=== PATIENT | male | born 2005 | race Caucasian/White ===

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

== ENCOUNTER 2025-01-06 11:54 | Emergency (ER) | payer OTHER, SELFPAY ==
[2025-01-06 12:33] VITALS: BP 134/74; PULSE 57; RESP 16; TEMP 36.3; O2SAT 98; BMI 37.1
--- NOTE | 2025-01-06 12:47 | ED_ITS ---
HPI - General Adult General Chief complaint: Extremity Injury, Lower Stated complaint: popped L knee Time Seen by Provider: 01/06/25 12:37 Source: patient Mode of arrival: ambulatory Limitations: no limitations History of Present Illness ED Provider: Jono Martinez HPI narrative: 19 yold male with pmh of left ACL tear presents to the ED for left knee pain. Patient states last his knee gave out while walking down the stairs. Patient states knee dislocated and went back into place. Patient states he had ACL tear repairs surgery that was unsucessful. Patient had normal xray at urgent care adn sent for MRI. Related Data Previous Rx's ?Medication ?Instructions ?Recorded acetaminophen 500 mg tablet 500 mg PO QID PRN fever or pain 10/16/23 #20 tabs azithromycin 250 mg tablet 250 mg PO DAILY 4 days #4 t abs 10/16/23 cefuroxime axetil 500 mg tablet 500 mg PO BID #14 tabs 10/16/23 ibuprofen 600 mg tablet 600 mg PO QID PRN fever or p ain 10/16/23 #20 tabs naproxen 500 mg tablet 500 mg PO BID PRN pain #14 t abs 01/06/25 Allergies Allergy/AdvReac Type Severity Reaction Status Date / Time No Known Allergies Allergy Verified 01/06/25 12:36 Review of Systems 2 Review of Systems: Knee popped out of placed and self reduced. Yes all other systems are reviewed and are negative [facility] Social History Social History Alcohol intake: never Patient Tobacco Use Status: Never used Tobacco Physical Exam ED Vital Signs: Vital Signs - 24 hr 01/06/25 12:33 Temperature 97.3 F Pulse Rate 57 Respiratory Rate 16 Blood Pressure 134/74 Pulse Oximetry 98 Oxygen Delivery Method Room Air BMI result Body Mass Index 37.1 Const General: cooperative, healthy appearing, comfortable, no acute distress, well developed, alert, awake and Physically active Orientation/consciousness: patient oriented x3 HENMT Head: Yes normal to inspection, Yes No palpable skull fracture present, Yes normocephalic and Yes atraumatic Ears: hearing grossly normal bilaterally, external ears normal, TM's normal bilaterally, TM normal on the right, TM normal on the left, EAC's normal, mastoids normal and no periauricular adenopathy Eyes General: appearance normal, both eyes and all related structures Neck Neck: Yes normal visual inspection, Yes full ROM, Yes no lymphadenopathy, Yes no meningeal signs, Yes trachea midline, Yes supple, No anterior neck swelling and No tender Chest Chest palpation & inspection: normal inspection of the chest and normal palpation of entire chest wall Resp Effort & Inspection: normal respiratory effort and able to speak in complete sentences Auscultation: clear to auscultation bilaterally Cardio Jugular venous distension: no JVD Heart sounds: S1 normal heart sound present and S2 normal heart sound present GI Inspection: Yes normal to inspection Palpation (GI): Soft to palpation, nontender, no guarding and not rigid General: Yes no CVA tenderness Back/Spine/Pelvis Back: no CVA tenderness and No back tenderness Skin General skin exam: no rashes or lesions noted, elasticity normal and turgor normal Neuro General: patient oriented x3, gait normal, tone normal, moves all extremities, Normal light touch and pain sensation, no meningeal signs, no focal motor deficits and CN's II-XI intact bilaterally Extrem General: Yes normal to inspection, Yes full ROM and Yes capillary refill normal Knee images: 2 1. presents to the ED for redness, red streaks, ecchymosis, deromities, or stifness. rest of extremities are noraml. motor, neuro, and vasular exam is intact. Psych Appearance: grossly normal, well kempt and not disheveled Medical Decision Making Medical Decision Making MDM Narrative: 19-year-old with past medical history of left knee ACL tear presents to ED for MRI of left knee. Patient states last while walking down the stairs his left knee came out pop to the right and then popped back in. Patient was seen at urgent care 2 days ago and was informed you will need a repeat MRI. Patient denies any incident of knee dislocation or any other trauma since . Patient denies any calf pain chest pain or shortness of breath. Patient denies any redness fever or chills. Patient able to bear weight and has knee wrap ordered. Patient has had normal x-ray at urgent care 2 days ago. No need for repeat imaging. Patient informed to follow up with the orthopedic Surgeon. Not suspecting DVT, septic joint, cellulitis, gout, compartment syndrome, arterial occlusion, any other life-threatening etiology. Differential Diagnosis Differential Diagnoses: The differential diagnosis associated with the presentation includes (Arthritis, dislocation) Admission/Observation Consideration of admission/observation: Escalation of care including admission/observation considered Independent Historian Clinical information obtained from an independent historian. History obtained from or confirmed by: Other (Patient is) Prescription Management I considered prescription management with: Pain Medication Discharge Plan Discharge Clinical Impression: Knee pain Patient Disposition: Home, Self-Care Instructions: Knee Pain (ED) Additional Instructions: Recommend follow-up with primary care provider and orthopedic surgeon. You will need an MRI to evaluate possible new ACL tear or any other ligament meniscus injury. Return to the ED immediately for any swelling, redness, bluish black discoloration, red streaks, inability to walk, fever, chills, chest pain, shortness of breath, calf pain or any other concerning symptoms. Continue using your knee Arsenio wrap. Do not take any other NSAID meds while taking naproxen. Prescriptions: New naproxen 500 mg tablet 500 mg PO BID PRN (Reason: pain) Qty: 14 0RF No Action cefuroxime axetil 500 mg tablet 500 mg PO BID Qty: 14 0RF azithromycin 250 mg tablet 250 mg PO DAILY 4 Days Qty: 4 0RF Rx Instructions: start on day 2 of therapy ibuprofen 600 mg tablet 600 mg PO QID PRN (Reason: fever or pain) Qty: 20 0RF acetaminophen 500 mg tablet 500 mg PO QID PRN (Reason: fever or pain) Qty: 20 0RF Referrals: [facility] [place] [facility] [Provider Group, Orthopedics] - 2 days Referral Note: Need cap dislocation that is self reduced. History of left ACL tear. Need MRI. Normal x-ray at urgent care Clinical Impression: Knee pain Stand Alone Forms: Work/School Release Interventions: ED Discharge Assessment Last Done: 01/06/25 13:43 Discharge Date/Time: 01/06/25 13:43 Print Language: Bengali
[2025-01-06 13:43] VITALS: BP 134/74; PULSE 57; RESP 16; TEMP 36.3; O2SAT 98
--- OUTSIDE RECORDS SUMMARY | 2025-01-06 15:38 | XMS_ITS | Encounter Summary ---
Author Organization [facility] Address [address] [place] [address] Phone Care Team Providers Care Import/Export Analyst Name Role Phone Harriet Kamara MD Primary Care Provider Unavailabl e Encounter Details Date Type Department Care Team (Late st Contact Info) Description 06/27/2012 Documentation [facility] [place] Family Medicine [address] [place] [address] Family Medicine, Physician [address] [place] [address] Social History Tobacco Use Types Packs/Day Years Used Date Smoking Tobacco: Never Assessed Sex and Gender Information Value Date Recorded Sex Assigned at Not on file Legal Sex Male 4:51 PM EDT Gender Identity Not on file Sexual Orientation Not on file documented as of this encounter Plan of Treatment Not on file documented as of this encounter Visit Diagnoses Not on filedocumented in this encounter Care Teams Import/Export Analyst Relationship Specialty Start Date End Date Harriet Kamara MD PCP - General 11/11/16 02/06/24 documented as of this encounter
--- OUTSIDE RECORDS SUMMARY | 2025-01-06 15:38 | XMS_ITS | Clinical Summary ---
Author Organization [facility] Address [address] [place] [id number] Phone Care Team Providers Care Deboner Name Role Phone Unavailable Primary Care Provider Unavailabl e Immunizations Immunization Administration Dates Next Due DTaP / Hep B / IPV 03/31/2005,01/28/2005, 005 DTaP 5 12/15/2008,03/30/2006 Hep A, ped/adol 10/01/2007,03/30/2006 Hep B, ped/adol 2004 Hib (HbOC) 03/31/2005,2004 Hib (PRP-T) 01/12/2006,01/28/2005 IPV 12/15/2008 Influenza Split 03/09/2012,01/19/2011,12/21/2009 Influenza, injectable, trivalent 12/15/2008,03/04,01/12/2006,03/31/2005 MMR 12/15/2008,09/30/2005 Pneumococcal Conjugate 01/12/2006,03/31/2005,,2004 Varicella 12/15/2008,09/30/2005 Family History Relation Name Status Comments Maternal Grandmother Alive Materna l grandmother: Obstructive sleep apnea Other Family history of Seizure disorder, Family history of Asthma, Family history of Diabetes mellitus, Family history of Obesity Paternal Grandmother Paterna l aunt: Cancer, breast Social History Tobacco Use Types Packs/Day Years Used Date Smoking Tobacco: Never Assessed Sex and Gender Information Value Date Recorded Sex Assigned at Not on file Legal Sex Male 4:51 PM EDT Gender Identity Not on file Sexual Orientation Not on file Last Filed Vital Signs Vital Sign Reading Time Taken Comments Blood Pressure 94/50 10/08/2012 12:00 AM EDT Pulse 110 02/07/2012 12:00 AM EST Temperature 39.1 C (102.4 F) 10/08/2012 12:00 AM EDT Respiratory Rate - - Oxygen Saturation 97% 02/07/2012 12:00 AM EST Inhaled Oxygen Concentration - - Weight 44.7 kg (98 lb 8 oz) 10/17/2012 12:00 AM EDT Height 137.2 cm (4' 6 ) 10/17/2012 12:00 AM EDT Body Mass Index 23.75 10/17/2012 12:00 AM EDT Plan of Treatment Health Maintenance Due Date Last Done Comments DTaP,Tdap,and Td Vaccines (6 - Tdap) 09/27/2015 12/15/2008, 03/30/2006, 03/31/2005, Additional history exists HPV Vaccines (1 - Male 3-dose series) 09/27/2019 Men B Vaccine (1 of 2 - Standard) 2020 Influenza Vaccines (#1) 2024 03/09/20 12, 01/19/2011, 12/21/2009, Additional history exists COVID-19 Vaccine (1 - season) 2024 Hepatitis B Vaccines Completed 03/31/2005, 01/28/2005, 2004, Additional history exists HIB Vaccines Completed 01/12/2006, 03/04, 01/28/2005, Additional history exists Pneumococcal Vaccine Completed 01/12/2006, 03/31/2005, 01/28/2005, Additional history exists Hepatitis A Vaccines Completed 10/01/2007, 03/30/20 06 IPV Vaccines Completed 12/15/2008, 03/04, 01/28/2005, Additional history exists MMR Vaccines Completed 12/15/2008, 09/30/2005 Varicella Vaccines Completed 12/15/2008, 09/30/2005 Meningococcal Vaccine Aged Out No lucy shelby eligible based on patient's age to complete this topic
--- OUTSIDE RECORDS SUMMARY | 2025-01-06 15:38 | XMS_ITS | Encounter Summary ---
Author Organization [facility] Address [address] [place] [address] Phone Care Team Providers Care Worship Pastor Name Role Phone Harriet Kamara MD Primary Care Provider Unavailabl e Encounter Details Date Type Department Care Team (Late st Contact Info) Description 07/25/2011 Documentation [facility] [place] Family Medicine [address] [place] [address] Family Medicine, Physician [address] [place] [address] Social History Tobacco Use Types Packs/Day Years [...] on filedocumented in this encounter Care Teams Worship Pastor Relationship Specialty Start Date End Date Harriet Kamara MD PCP - General 11/11/16 02/06/24 documented as of this encounter
--- OUTSIDE RECORDS SUMMARY | 2025-01-06 15:38 | XMS_ITS | Encounter Summary ---
Author Organization [facility] Address [address] [place] [address] Phone Care Team Providers Care Tank Cleaning Supervisor Name Role Phone Harriet Kamara MD Primary Care Provider Unavailabl e Encounter Details Date Type Department Care Team (Late st Contact Info) Description 05/31/2013 Documentation [facility] [place] Family Medicine [address] [place] [address] Family Medicine, Physician [address] [place] [address] Social History Tobacco Use Types Packs/Day Years [...] on filedocumented in this encounter Care Teams Tank Cleaning Supervisor Relationship Specialty Start Date End Date Harriet Kamara MD PCP - General 11/11/16 02/06/24 documented as of this encounter
--- OUTSIDE RECORDS SUMMARY | 2025-01-06 15:38 | XMS_ITS | Encounter Summary ---
Author Organization [facility] Address [address] [place] [address] Phone Care Team Providers Care Computer Repair Instructor Name Role Phone Harriet Kamara MD Primary Care Provider Unavailabl e Encounter Details Date Type Department Care Team (Late st Contact Info) Description 11/17/2016 Conversion Encounter [address] [address] Social History Tobacco Use Types Packs/Day Years [...] on filedocumented in this encounter Care Teams Computer Repair Instructor Relationship Specialty Start Date End Date Harriet Kamara MD PCP - General 11/11/16 02/06/24 documented as of this encounter
--- OUTSIDE RECORDS SUMMARY | 2025-01-06 15:38 | XMS_ITS | Encounter Summary ---
Author Organization [facility] Address [address] [place] [address] Phone Care Team Providers Care Division Order Technician Name Role Phone Harriet Kamara MD Primary Care Provider Unavailabl e Encounter Details Date Type Department Care Team (Late st Contact Info) Description 01/20/[address] [facility] [place] Family Medicine [address] [place] [address] Family Medicine, Physician [address] [place] [address] Social History Tobacco Use Types Packs/Day Years [...] on filedocumented in this encounter Care Teams Division Order Technician Relationship Specialty Start Date End Date Harriet Kamara MD PCP - General 11/11/16 02/06/24 documented as of this encounter
--- OUTSIDE RECORDS SUMMARY | 2025-01-06 15:38 | XMS_ITS | Encounter Summary ---
Author Organization [facility] Address [address] [place] [address] Phone Care Team Providers Care Health Services Manager Name Role Phone Harriet Kamara MD Primary Care Provider Unavailabl e Encounter Details Date Type Department Care Team (Late st Contact Info) Description 01/20/2011 Documentation [facility] [place] Family Medicine [address] [place] [address] Family Medicine, Physician [address] [place] [address] Social History Tobacco Use Types Packs/Day Years [...] on filedocumented in this encounter Care Teams Health Services Manager Relationship Specialty Start Date End Date Harriet Kamara MD PCP - General 11/11/16 02/06/24 documented as of this encounter
--- OUTSIDE RECORDS SUMMARY | 2025-01-06 15:39 | XMS_ITS | Encounter Summary ---
Author Organization [facility] Address [address] [place] [address] Phone Care Team Providers Care Plaster Machine Tender Name Role Phone Harriet Kamara MD Primary Care Provider Unavailabl e Encounter Details Date Type Department Care Team (Late st Contact Info) Description 03/12/2012 Documentation [facility] [place] Family Medicine [address] [place] [address] Family Medicine, Physician [address] [place] [address] Social History Tobacco Use Types Packs/Day Years [...] on filedocumented in this encounter Care Teams Plaster Machine Tender Relationship Specialty Start Date End Date Harriet Kamara MD PCP - General 11/11/16 02/06/24 documented as of this encounter
--- OUTSIDE RECORDS SUMMARY | 2025-01-06 15:39 | XMS_ITS | Encounter Summary ---
Author Organization [facility] Address [address] [place] [address] Phone Care Team Providers Care Wheel Roller Name Role Phone Harriet Kamara MD Primary Care Provider Unavailabl e Encounter Details Date Type Department Care Team (Late st Contact Info) Description 01/07/2010 [place] [facility] [place] [address] [place] [address] Family Medicine, Physician [address] [place] [address] Social History Tobacco Use Types Packs/Day Years [...] on filedocumented in this encounter Care Teams Wheel Roller Relationship Specialty Start Date End Date Harriet Kamara MD PCP - General 11/11/16 02/06/24 documented as of this encounter
--- OUTSIDE RECORDS SUMMARY | 2025-01-06 15:39 | XMS_ITS | Encounter Summary ---
Author Organization [facility] Address [address] [place] [address] Phone Care Team Providers Care Flexo Press Operator Name Role Phone Harriet Kamara MD Primary Care Provider Unavailabl e Encounter Details Date Type Department Care Team (Late st Contact Info) Description 02/13/2012 Documentation [facility] [place] Family Medicine [address] [place] [address] Family Medicine, Physician [address] [place] [address] Social History Tobacco Use Types Packs/Day Years [...] on filedocumented in this encounter Care Teams Flexo Press Operator Relationship Specialty Start Date End Date Harriet Kamara MD PCP - General 11/11/16 02/06/24 documented as of this encounter
== END 2025-01-06 13:43 | disposition home or self-care (01) ==
PROVIDERS: Emergency Provider Emergency Medicine
DX: M25.562 Pain in left knee (principal); Z98.890 Other specified postprocedural states
CPT/HCPCS: 99282; 99283

== ENCOUNTER 2025-01-21 08:26 | Outpatient (REF) | payer OTHER, SELFPAY ==
--- NOTE | ~2025-01-21 | XR_ITS ---
EXAMINATION: XR KNEE, LEFT CLINICAL INFORMATION: M25.562 - Pain in left knee COMPARISON: None available. TECHNIQUE: AP lateral and sunrise views of the left knee. FINDINGS: Joint space narrowing involving medial lateral compartments with sclerosis of the articular surface. No acute cortical disruption or malalignment. No lytic or blastic lesions. No gross suprapatellar bursa joint effusion. No subcutaneous emphysema. XR/XR knee LT 3V IMPRESSION: Mild medial compartment osteoarthrosis/osteoarthritis. Electronically signed by: Jerome Ferrer MD 01/21/2025 01:47 PM EDT
--- OUTSIDE RECORDS SUMMARY | 2025-01-23 08:50 | XMS_ITS | Encounter Summary ---
Author Organization [facility] Address [address] [place] [address] Phone Care Team Providers Care Clerk General Name Role Phone Harriet Kamara MD Primary Care Provider Unavailabl e Encounter Details Date Type Department Care Team (Late st Contact Info) Description 11/17/2016 Conversion Encounter [address] [address] Social History Tobacco Use Types Packs/Day Years [...] on filedocumented in this encounter Care Teams Clerk General Relationship Specialty Start Date End Date Harriet Kamara MD PCP - General 11/11/16 02/06/24 documented as of this encounter
--- OUTSIDE RECORDS SUMMARY | 2025-01-23 08:50 | XMS_ITS | Encounter Summary ---
Author Organization [facility] Address [address] [place] [address] Phone Care Team Providers Care Account Support Analyst Name Role Phone Harriet Kamara MD Primary Care Provider Unavailabl e Encounter Details Date Type Department Care Team (Late st Contact Info) Description 06/27/2012 Documentation [facility] [place] Family Medicine [address] [place] [address] Family Medicine, Physician [address] [place] [address] Social History Tobacco Use Types Packs/Day Years [...] on filedocumented in this encounter Care Teams Account Support Analyst Relationship Specialty Start Date End Date Harriet Kamara MD PCP - General 11/11/16 02/06/24 documented as of this encounter
--- OUTSIDE RECORDS SUMMARY | 2025-01-23 08:50 | XMS_ITS | Clinical Summary ---
Author Organization [facility] Address [address] [place] [address] Phone Care Team Providers Care Com Writer Name Role Phone Unavailable Primary Care Provider [...]
--- OUTSIDE RECORDS SUMMARY | 2025-01-23 08:51 | XMS_ITS | Encounter Summary ---
Author Organization [facility] Address [address] [place] [address] Phone Care Team Providers Care Raw Silk Grader Name Role Phone Harriet Kamara MD Primary Care Provider Unavailabl e Encounter Details Date Type Department Care Team (Late st Contact Info) Description 01/20/2011 Documentation [facility] [place] [address] [place] [address] Family Medicine, Physician [address] [place] [address] Social History Tobacco Use Types Packs/Day Years [...] on filedocumented in this encounter Care Teams Raw Silk Grader Relationship Specialty Start Date End Date Harriet Kamara MD PCP - General 11/11/16 02/06/24 documented as of this encounter
--- OUTSIDE RECORDS SUMMARY | 2025-01-23 08:51 | XMS_ITS | Encounter Summary ---
Author Organization [facility] Address [address] [place] [address] Phone Care Team Providers Care Auto Service Writer Name Role Phone Harriet Kamara MD Primary Care Provider Unavailabl e Encounter Details Date Type Department Care Team (Late st Contact Info) Description 05/31/2013 Document[place] [facility] [place] [address] [place] [address] Family Medicine, Physician [address] [place] [address] Social History Tobacco Use Types Packs/Day Years [...] on filedocumented in this encounter Care Teams Auto Service Writer Relationship Specialty Start Date End Date Harriet Kamara MD PCP - General 11/11/16 02/06/24 documented as of this encounter
--- OUTSIDE RECORDS SUMMARY | 2025-01-23 08:51 | XMS_ITS | Encounter Summary ---
Author Organization [facility] Address [address] [place] [address] Phone Care Team Providers Care Discovery Manager Name Role Phone Harriet Kamara MD Primary Care Provider Unavailabl e Encounter Details Date Type Department Care Team (Late st Contact Info) Description 07/25/2011 Documentation [facility] Family Medicine [address] [place] [address] Family Medicine, Physician [address] [place] [address] Social History Tobacco Use Types Packs/Day Years [...] on filedocumented in this encounter Care Teams Discovery Manager Relationship Specialty Start Date End Date Harriet Kamara MD PCP - General 11/11/16 02/06/24 documented as of this encounter
--- OUTSIDE RECORDS SUMMARY | 2025-01-23 08:51 | XMS_ITS | Encounter Summary ---
Author Organization [facility] Address [address] [place] [address] Phone Care Team Providers Care Fuel House Attendant Name Role Phone Harriet Kamara MD Primary Care Provider Unavailabl e Encounter Details Date Type Department Care Team (Late st Contact Info) Description 01/07/2010 Documentation [facility] [place] [address] [place] [address] Family Medicine, Physician [address] [place] [address] Social History Tobacco Use Types Packs/Day Years [...] on filedocumented in this encounter Care Teams Fuel House Attendant Relationship Specialty Start Date End Date Harriet Kamara MD PCP - General 11/11/16 02/06/24 documented as of this encounter
--- OUTSIDE RECORDS SUMMARY | 2025-01-23 08:51 | XMS_ITS | Encounter Summary ---
Author Organization [facility] Address [address] [place] [address] Phone Care Team Providers Care Front Office Secretary Name Role Phone Harriet Kamara MD Primary Care Provider Unavailabl e Encounter Details Date Type Department Care Team (Late st Contact Info) Description 02/13/2012 Documentation [facility] [place] [address] [place] [address] Family Medicine, Physician [address] [place] [address] Social History Tobacco Use Types Packs/Day Years [...] on filedocumented in this encounter Care Teams Front Office Secretary Relationship Specialty Start Date End Date Harriet Kamara MD PCP - General 11/11/16 02/06/24 documented as of this encounter
--- OUTSIDE RECORDS SUMMARY | 2025-01-23 08:51 | XMS_ITS | Encounter Summary ---
Author Organization [facility] Address [address] [place] [address] Phone Care Team Providers Care Talent Development Analyst Name Role Phone Harriet Kamara MD Primary Care Provider Unavailabl e Encounter Details Date Type Department Care Team (Late st Contact Info) Description 03/12/2012 Documentation [facility] [place] Family Medicine [address] [place] [address] Family Medicine, Physician [address] [place] [address] Social History Tobacco Use Types Packs/Day Years [...] on filedocumented in this encounter Care Teams Talent Development Analyst Relationship Specialty Start Date End Date Harriet Kamara MD PCP - General 11/11/16 02/06/24 documented as of this encounter
--- OUTSIDE RECORDS SUMMARY | 2025-01-23 08:51 | XMS_ITS | Encounter Summary ---
Author Organization [facility] Address [address] [place] [address] Phone Care Team Providers Care Occupational Therapy Co Director Name Role Phone Harriet Kamara MD Primary Care Provider Unavailabl e Encounter Details Date Type Department Care Team (Late st Contact Info) Description 01/20/2011 Documentation [facility] Family Medicine [address] [place] [address] Family Medicine, Physician [address] [place] [address] Social History Tobacco Use Types Packs/Day Years [...] on filedocumented in this encounter Care Teams Occupational Therapy Co Director Relationship Specialty Start Date End Date Harriet Kamara MD PCP - General 11/11/16 02/06/24 documented as of this encounter
== END 2025-01-21 08:27 | disposition home or self-care (01) ==
LOC: HO.HOSX 08:26
PROVIDERS: Visit Provider Orthopaedic Surgery
DX: S83.005A Unspecified dislocation of left patella, initial encounter (principal); W10.8XXA Fall (on) (from) other stairs and steps, initial encounter
CPT/HCPCS: 73562; 99202

== ENCOUNTER 2025-01-21 12:58 | Outpatient (AMB) | payer OTHER, SELFPAY ==
--- NOTE | 2025-01-21 13:02 | A.OFFVIS_ITS ---
Intake Visit Reasons: ER- LT knee pain Intake Note: José Miguel is a 19 year old male who presents today for an emergency department follow up for his left ACL injury status post falling down a flight of stairs, DOI: 01/02/2025. He reports while walking down the stairs he felt his left knee pop out on the lateral aspect and then pop back in. He was treated at urgent care on 01/06/2025 and was informed a repeat MRI was needed. Hx of meniscal injury, surgery to repair vs partial meniscetomy was done but he says it was unsuccessful. Work Duties: walking around for 10 hours, Work days Sundays,,,, lifting more than 50lbs, stepping on a platform. Allergies No Known Allergies Allergy (Verified 01/21/25 13:08) HPI HPI ER- LT knee pain: Details: Mr. Mujica is a 19-year-old male who presents to the office today for evaluation of a left knee injury that occurred on 01/02/2025. He reports that he was walking backwards and felt as though his knee laterally and dislocated. When straightening the knee back out moved back into place. 2 days prior to presenting to the emergency department he was seen at an urgent care where x- rays were obtained and he was told was negative for any dislocation or acute fracture. Additionally, he reports that he had a surgery meniscal repair versus partial meniscectomy in the past. [facility] Social History (Updated 01/21/25 @ 13:18 by Karely Myers) Alcohol intake: never Patient Tobacco Use Status: Never used Tobacco Current occupational status: employed Current occupation: [employer] Review of Systems Const All systems reviewed & are unremarkable except as noted in HPI and below Physical Exam Const General: cooperative, healthy appearing and no acute distress Resp Effort & Inspection: normal respiratory effort and able to speak in complete sentences Extrem Other: Left knee: Normal to inspection. No ecchymosis, erythema, or joint effusion. Pain with patellar grind on the medial aspect of the patella. Medial retropatellar tenderness. No tenderness to palpation along the medial or lateral joint lines. Full knee extension and flexion. Negative Isidro's. Negative anterior drawer. NVI. Psych Appearance: grossly normal Mental Status: mental status grossly normal Attitude: cooperative Assessment & Plan Assessment & Plan (1) Dislocation of patella, left, closed: Code(s): S83.005A - Unspecified dislocation of left patella, initial encounter Category: Medical (2) Contusion of knee, left: Code(s): S80.02XA - Contusion of left knee, initial encounter Category: Medical Plan Mr. Mujica is a 19-year-old male who presents to the office today for evaluation of a left knee injury that occurred on 01/02/2025. He reports that he was walking backwards and felt as though his knee laterally and dislocated. When straightening the knee back out moved back into place. 2 days prior to presenting to the emergency department he was seen at an urgent care where x- rays were obtained and he was told was negative for any dislocation or acute fracture. Additionally, he reports that he had a surgery meniscal repair versus partial meniscectomy in the past. While in the office today, I have recommended MRI imaging to further evaluate the integrity of the left knee and surrounding structures. Additionally, the patient has been using a knee sleeve which has been providing some support. I have given the patient a gentleman knee brace that has been fit off the shelf while in the office today that will give him more support than a knee sleeve. X-rays of the left knee which were obtained while in the office today and were reviewed by me, Alia Malagon PA-C, revealed no acute fracture or dislocation. He was given an out-of-work note until follow up. He will follow up in 4 weeks after the MRIs obtained, sooner if needed. Orders: Orders knee LT wo con Today S80.02XA - Contusion of left knee, initial encounter, S83.005A - Unspecified dislocation of left patella, initial encounter Coding Level of Care Code New Pt Level 3 (37154) Diagnoses Dislocation of patella, left, closed S83.005A Contusion of knee, left S80.02XA
--- OUTSIDE RECORDS SUMMARY | 2025-01-21 16:35 | XMS_ITS | Encounter Summary ---
Author Organization [facility] Address [address] [place] [address] Phone Care Team Providers Care Maintenance Controller Name Role Phone Harriet Kamara MD Primary Care Provider Unavailabl e Encounter Details Date Type Department Care Team (Late st Contact Info) Description 05/31/2013 Documentation [facility] [place] [address] [place] [address] Family Medicine, Physician [address] [place] [address] Social History Tobacco Use Types Packs/Day Years [...] on filedocumented in this encounter Care Teams Maintenance Controller Relationship Specialty Start Date End Date Harriet Kamara MD PCP - General 11/11/16 02/06/24 documented as of this encounter
--- OUTSIDE RECORDS SUMMARY | 2025-01-21 16:35 | XMS_ITS ---
Author Name [facility] Organization Unknown Care Team Organization Name Specialty Phone Email Start Date End Da te [facility] Julianne Navarro Primary Care 02/08/20222023
--- OUTSIDE RECORDS SUMMARY | 2025-01-21 16:35 | XMS_ITS | Encounter Summary ---
Author Organization [facility] Address [address] [place] [address] Phone Care Team Providers Care Petroleum Production Engineer Name Role Phone Harriet Kamara MD Primary Care Provider Unavailabl e Encounter Details Date Type Department Care Team (Late st Contact Info) Description 03/12/[address] [facility] [place] Family Medicine [address] [place] [address] Family Medicine, Physician [address] [place] [address] Social History Tobacco Use Types Packs/Day Years [...] on filedocumented in this encounter Care Teams Petroleum Production Engineer Relationship Specialty Start Date End Date Harriet Kamara MD PCP - General 11/11/16 02/06/24 documented as of this encounter
--- OUTSIDE RECORDS SUMMARY | 2025-01-21 16:35 | XMS_ITS | Encounter Summary ---
Author Organization [facility] Address [address] [place] [address] Phone Care Team Providers Care Water Superintendent Name Role Phone Harriet Kamara MD Primary Care Provider Unavailabl e Encounter Details Date Type Department Care Team (Late st Contact Info) Description 02/13/[address] [facility] [place] [address] [place] [address] Family Medicine, Physician [address] [place] [address] Social History Tobacco Use Types Packs/Day Years [...] on filedocumented in this encounter Care Teams Water Superintendent Relationship Specialty Start Date End Date Harriet Kamara MD PCP - General 11/11/16 02/06/24 documented as of this encounter
--- OUTSIDE RECORDS SUMMARY | 2025-01-21 16:35 | XMS_ITS | Encounter Summary ---
Author Organization [facility] Address [address] [place] [address] Phone Care Team Providers Care Cloud Subject Matter Expert Name Role Phone Harriet Kamara MD Primary Care Provider Unavailabl e Encounter Details Date Type Department Care Team (Late st Contact Info) Description 01/20/2011 Documentation [facility] [place] [address] [place] [address] Family Medicine, Physician [address] [place] [address] Social History Tobacco Use Types Packs/Day Years [...] on filedocumented in this encounter Care Teams Cloud Subject Matter Expert Relationship Specialty Start Date End Date Harriet Kamara MD PCP - General 11/11/16 02/06/24 documented as of this encounter
--- OUTSIDE RECORDS SUMMARY | 2025-01-21 16:35 | XMS_ITS | Encounter Summary ---
Author Organization [facility] Address [address] [place] [address] Phone Care Team Providers Care Restaurant Shift Leader Name Role Phone Harriet Kamara MD Primary Care Provider Unavailabl e Encounter Details Date Type Department Care Team (Late st Contact Info) Description 01/20/2011 Documentation [facility] [place] Family Medicine [address] [place] [address] Family Medicine, Physician [address] [place] [address] Social History Tobacco Use Types Packs/Day Years [...] on filedocumented in this encounter Care Teams Restaurant Shift Leader Relationship Specialty Start Date End Date Harriet Kamara MD PCP - General 11/11/16 02/06/24 documented as of this encounter
--- OUTSIDE RECORDS SUMMARY | 2025-01-21 16:35 | XMS_ITS | Encounter Summary ---
Author Organization [facility] Address [address] [place] [address] Phone Care Team Providers Care Fisher Dip Net Name Role Phone Harriet Kamara MD Primary Care Provider Unavailabl e Encounter Details Date Type Department Care Team (Late st Contact Info) Description 06/27/2012 Documentation [facility] [place] Family Medicine [address] [place] [address] Family Medicine, Physician [address] [place] [address] Social History Tobacco Use Types Packs/Day Years [...] on filedocumented in this encounter Care Teams Fisher Dip Net Relationship Specialty Start Date End Date Harriet Kamara MD PCP - General 11/11/16 02/06/24 documented as of this encounter
--- OUTSIDE RECORDS SUMMARY | 2025-01-21 16:35 | XMS_ITS | Encounter Summary ---
Author Organization [facility] Address [address] [place] [address] Phone Care Team Providers Care Barrel Burner Name Role Phone Harriet Kamara MD Primary Care Provider Unavailabl e Encounter Details Date Type Department Care Team (Late st Contact Info) Description 01/07/2010 Documentation [facility] [place] Family Medicine [address] [place] [address] Family Medicine, Physician [address] [place] [address] Social History Tobacco Use Types Packs/Day Years [...] on filedocumented in this encounter Care Teams Barrel Burner Relationship Specialty Start Date End Date Harriet Kamara MD PCP - General 11/11/16 02/06/24 documented as of this encounter
--- OUTSIDE RECORDS SUMMARY | 2025-01-21 16:35 | XMS_ITS | Encounter Summary ---
Author Organization [facility] Address [address] [place] [address] Phone Care Team Providers Care Storage Worker Name Role Phone Harriet Kamara MD Primary Care Provider Unavailabl e Encounter Details Date Type Department Care Team (Late st Contact Info) Description 07/25/2011 Documentation [facility] [place] [address] [place] [address] Family Medicine, Physician [address] [place] [address] Social History Tobacco Use Types Packs/Day Years [...] on filedocumented in this encounter Care Teams Storage Worker Relationship Specialty Start Date End Date Harriet Kamara MD PCP - General 11/11/16 02/06/24 documented as of this encounter
--- OUTSIDE RECORDS SUMMARY | 2025-01-21 16:35 | XMS_ITS | Clinical Summary ---
Author Organization [facility] Address [address] [place] [id number] Phone Care Team Providers Care Indian Trader Name Role Phone Unavailable Primary Care Provider [...]
--- OUTSIDE RECORDS SUMMARY | 2025-01-21 16:35 | XMS_ITS | Encounter Summary ---
Author Organization [facility] Address [address] [place] [address] Phone Care Team Providers Care Repairer Kiln Car Name Role Phone Harriet Kamara MD Primary Care Provider Unavailabl e Encounter Details Date Type Department Care Team (Late st Contact Info) Description 11/17/2016 Conversion Encounter [address] [address] Social History Tobacco Use Types Packs/Day Years [...] on filedocumented in this encounter Care Teams Repairer Kiln Car Relationship Specialty Start Date End Date Harriet Kamara MD PCP - General 11/11/16 02/06/24 documented as of this encounter
== END 2025-01-21 13:36 | disposition home or self-care (01) ==
LOC: HO.HOS 12:59
PROVIDERS: Visit Provider Physician Assistant
DX: S83.005A Unspecified dislocation of left patella, initial encounter (principal); S80.02XA Contusion of left knee, initial encounter
CPT/HCPCS: 99203

== ENCOUNTER → 2025-01-21 13:39 | Outpatient (BNV) | payer OTHER, SELFPAY | PROVIDERS: Visit Provider Radiology Diagnostic Radiology | DX: M17.12 Unilateral primary osteoarthritis, left knee (principal) | CPT/HCPCS: 73562 ==

== ENCOUNTER 2025-02-10 18:54 | Outpatient (REF) | payer OTHER, SELFPAY ==
--- NOTE | ~2025-02-10 | MR_ITS ---
EXAMINATION: MR KNEE WITHOUT CONTRAST, LEFT CLINICAL INFORMATION: Unspecified dislocation of left patella . Patient reports knee dislocated 1-2 months ago. Patient reports prior meniscal surgery. COMPARISON: X-ray 01/21/2025 TECHNIQUE: MRI of the knee without contrast was performed using routine sequences on a high-field scanner. FINDINGS: MENISCI: Medial Meniscus: Intact Lateral Meniscus: Horizontal tear in the anterior horn.. Horizontal and superior surface tear in the body. Horizontal tear in the posterior horn/body junction. 1.1 cm cystic focus adjacent to the anterior root, could reflect a para-meniscal cyst, with occult tear in the anterior root. LIGAMENTS: Cruciate: Intact Collateral: Mild MCL sprain. Intact LCL complex. EXTENSOR MECHANISM: Intact ARTICULAR CARTILAGE/BONE: Patellofemoral Compartment: Mild lateral patellar subluxation. Edema in the medial aspect of the patella. Chondral heterogeneity in the medial patellar facet. These findings could be related to the reported recent patellar dislocation, degenerative changes. Mild increased T2 signal in the MPFL could represent sprain. Medial Compartment: No significant chondral loss Lateral Compartment: Subchondral edema in the lateral aspect of the femoral condyle, overlying chondral thinning. These findings could be related to sequela of trauma, degenerative changes, or a combination of these. Small marginal osteophytes present. JOINT FLUID AND BURSAE: Small effusion. No significant Cam's cyst. MR/MR knee LT wo con IMPRESSION: 1. Tear of the anterior horn, body and posterior horn of the lateral meniscus. 1.1 cm cystic focus adjacent to the anterior root, could reflect a para-meniscal cyst, raising possibility of occult tear in the anterior root. 2. Mild MCL sprain. 3. Osteochondral patellar findings as detailed above.. Mild sprain of the MPFL. These findings could be related to the reported recent patellar dislocation. In part, could be related to degenerative changes. 4. Lateral femoral condyle osteochondral findings could be related to trauma, degenerative changes. 5. Small effusion. Electronically signed by: Murali Rodriguez MD 02/11/2025 03:44 PM [facility]
--- OUTSIDE RECORDS SUMMARY | 2025-02-10 19:01 | XMS_ITS | Encounter Summary ---
Author Organization [facility] Address [address] [place] [address] Phone Care Team Providers Care Manager Of Environmental Services Name Role Phone Harriet Kamara MD Primary Care Provider Unavailabl e Encounter Details Date Type Department Care Team (Late st Contact Info) Description 03/12/2012 Documentation [facility] Family Medicine [address] [place] [address] Family Medicine, Physician [address] [place] [address] Social History Tobacco Use Types Packs/Day Years [...] on filedocumented in this encounter Care Teams Manager Of Environmental Services Relationship Specialty Start Date End Date Harriet Kamara MD PCP - General 11/11/16 02/06/24 documented as of this encounter
--- OUTSIDE RECORDS SUMMARY | 2025-02-10 19:01 | XMS_ITS | Encounter Summary ---
Author Organization [facility] Address [address] [place] [address] Phone Care Team Providers Care Child Care Development Specialist Name Role Phone Harriet Kamara MD Primary Care Provider Unavailabl e Encounter Details Date Type Department Care Team (Late st Contact Info) Description 05/31/2013 Documentation [facility] [place] [address] [place] [address] Family Medicine, Physician [address] [place] [address] Social History Tobacco Use Types Packs/Day Years [...] on filedocumented in this encounter Care Teams Child Care Development Specialist Relationship Specialty Start Date End Date Harriet Kamara MD PCP - General 11/11/16 02/06/24 documented as of this encounter
--- OUTSIDE RECORDS SUMMARY | 2025-02-10 19:01 | XMS_ITS | Encounter Summary ---
Author Organization [facility] Address [address] [place] [address] Phone Care Team Providers Care Machine Sole Leveler Name Role Phone Harriet Kamara MD Primary Care Provider Unavailabl e Encounter Details Date Type Department Care Team (Late st Contact Info) Description 07/25/2011 Documentation [facility] [place] [address] [place] [address] Family Medicine, Physician [address] [place] [address] Social History Tobacco Use Types Packs/Day Years [...] on filedocumented in this encounter Care Teams Machine Sole Leveler Relationship Specialty Start Date End Date Harriet Kamara MD PCP - General 11/11/16 02/06/24 documented as of this encounter
--- OUTSIDE RECORDS SUMMARY | 2025-02-10 19:01 | XMS_ITS | Encounter Summary ---
Author Organization [facility] Address [address] [place] [address] Phone Care Team Providers Care Professor Of Radiology Name Role Phone Harriet Kamara MD Primary Care Provider Unavailabl e Encounter Details Date Type Department Care Team (Late st Contact Info) Description 01/20/2011 Documentation [facility] [place] [address] [place] [address] Family Medicine, Physician [address] [place] [address] Social History Tobacco Use Types Packs/Day Years [...] on filedocumented in this encounter Care Teams Professor Of Radiology Relationship Specialty Start Date End Date Harriet Kamara MD PCP - General 11/11/16 02/06/24 documented as of this encounter
--- OUTSIDE RECORDS SUMMARY | 2025-02-10 19:01 | XMS_ITS | Clinical Summary ---
Author Organization [facility] Address [address] [place] [id number] Phone Care Team Providers Care Welder Operator Name Role Phone Unavailable Primary Care Provider [...]
--- OUTSIDE RECORDS SUMMARY | 2025-02-10 19:01 | XMS_ITS | Encounter Summary ---
Author Organization [facility] Address [address] [place] [address] Phone Care Team Providers Care Ski Edge Painter Name Role Phone Harriet Kamara MD Primary Care Provider Unavailabl e Encounter Details Date Type Department Care Team (Late st Contact Info) Description 11/17/2016 Conversion Encounter [address] [address] Social History Tobacco Use Types Packs/Day Years [...] on filedocumented in this encounter Care Teams Ski Edge Painter Relationship Specialty Start Date End Date Harriet Kamara MD PCP - General 11/11/16 02/06/24 documented as of this encounter
--- OUTSIDE RECORDS SUMMARY | 2025-02-10 19:01 | XMS_ITS | Encounter Summary ---
Author Organization [facility] Address [address] [place] [address] Phone Care Team Providers Care Hydraulics Teacher Name Role Phone Harriet Kamara MD Primary Care Provider Unavailabl e Encounter Details Date Type Department Care Team (Late st Contact Info) Description 01/07/2010 Documentation [facility] [place] Family Medicine [address] [place] [address] Family Medicine, Physician [address] [place] [address] Social History Tobacco Use Types Packs/Day Years [...] on filedocumented in this encounter Care Teams Hydraulics Teacher Relationship Specialty Start Date End Date Harriet Kamara MD PCP - General 11/11/16 02/06/24 documented as of this encounter
--- OUTSIDE RECORDS SUMMARY | 2025-02-10 19:01 | XMS_ITS | Encounter Summary ---
Author Organization [facility] Address [address] [place] [address] Phone Care Team Providers Care Hurl Shaker Name Role Phone Harriet Kamara MD Primary Care Provider Unavailabl e Encounter Details Date Type Department Care Team (Late st Contact Info) Description 01/20/2011 Documentation [facility] [place] Family Medicine [address] [place] [address] Family Medicine, Physician [address] [place] [address] Social History Tobacco Use Types Packs/Day Years [...] on filedocumented in this encounter Care Teams Hurl Shaker Relationship Specialty Start Date End Date Harriet Kamara MD PCP - General 11/11/16 02/06/24 documented as of this encounter
--- OUTSIDE RECORDS SUMMARY | 2025-02-10 19:01 | XMS_ITS | Encounter Summary ---
Author Organization [facility] Address [address] [place] [address] Phone Care Team Providers Care [employer] Name Role Phone Harriet Kamara MD Primary Care Provider Unavailabl e Encounter Details Date Type Department Care Team (Late st Contact Info) Description 02/13/2012 Documentation [facility] [place] Family Medicine [address] [place] [address] Family Medicine, Physician [address] [place] [address] Social History Tobacco Use Types Packs/Day Years [...] on filedocumented in this encounter Care Teams [employer] Relationship Specialty Start Date End Date Harriet Kamara MD PCP - General 11/11/16 02/06/24 documented as of this encounter
--- OUTSIDE RECORDS SUMMARY | 2025-02-10 19:01 | XMS_ITS | Encounter Summary ---
Author Organization [facility] Address [address] [place] [address] Phone Care Team Providers Care Tick Eradicator Name Role Phone Harriet Kamara MD Primary Care Provider Unavailabl e Encounter Details Date Type Department Care Team (Late st Contact Info) Description 06/27/2012 Documentation [facility] [place] Family Medicine [address] [place] [address] Family Medicine, Physician [address] [place] [address] Social History Tobacco Use Types Packs/Day Years [...] on filedocumented in this encounter Care Teams Tick Eradicator Relationship Specialty Start Date End Date Harriet Kamara MD PCP - General 11/11/16 02/06/24 documented as of this encounter
== END 2025-02-10 18:55 | disposition home or self-care (01) ==
LOC: HO.MRI 18:54
PROVIDERS: Visit Provider Physician Assistant
DX: S83.005A Unspecified dislocation of left patella, initial encounter (principal); S80.02XA Contusion of left knee, initial encounter
CPT/HCPCS: 73721

== ENCOUNTER 2025-02-18 12:48 | Outpatient (AMB) | payer OTHER, SELFPAY ==
--- NOTE | 2025-02-18 12:56 | A.OFFVIS_ITS ---
Intake Visit Reasons: OV f/u Lt knee pain Intake Note: José Miguel is a 19 year old male who presents today for a left knee MRI review. Patient reports he is doing well. He mentions having throbbing pain and muscle spams at times. Patient states that his knee brace gives him relief but when he is going to work out or jog his knee feels unstable. IMPRESSION: 1. Tear of the anterior horn, body and posterior horn of the lateral meniscus. 1.1 cm cystic focus adjacent to the anterior root, could reflect a para-meniscal cyst, raising possibility of occult tear in the anterior root. 2. Mild MCL sprain. 3. Osteochondral patellar findings as detailed above.. Mild sprain of the MPFL. These findings could be related to the reported recent patellar dislocation. In part, could be related to degenerative changes. 4. Lateral femoral condyle osteochondral findings could be related to trauma, degenerative changes. 5. Small effusion. Allergies No Known Allergies Allergy (Verified 02/18/25 13:07) HPI HPI OV f/u Lt knee pain: Details: Mr. Mujica is a 19-year-old male who presents to the office today for follow up of left knee pain status post patellar dislocation that occurred on 01/02/2025. He states that he was walking down stairs when he felt his patella dislocate and then reduce on its own. Patient had an MRI that was performed on 02/10/2025 of the left knee. He reports to the office today with complaints of medial and lateral sided joint pain. Medial-sided knee pain is more severe at this time. The lateral pain occurs occasionally. [facility] Social History Alcohol intake: never Patient Tobacco Use Status: Never used Tobacco Current occupational status: employed Current occupation: [employer] Review of Systems Const All systems reviewed & are unremarkable except as noted in HPI and below Physical Exam Const General: cooperative, healthy appearing and no acute distress Resp Effort & Inspection: normal respiratory effort and able to speak in complete sentences Extrem Other: Left knee: Normal to inspection. No ecchymosis, erythema, or joint effusion. Pain with patellar grind on the medial aspect of the patella. Medial retropatellar tenderness. No tenderness to palpation along the medial or lateral joint lines. Full knee extension and flexion. Negative Isidro's. Negative anterior drawer. NVI. Psych Appearance: grossly normal Mental Status: mental status grossly normal Attitude: cooperative Assessment & Plan Assessment & Plan (1) Acute meniscal tear of left knee: Code(s): S83.207A - Unspecified tear of unspecified meniscus, current injury, left knee, initial encounter Category: Medical (2) MCL sprain of left knee: Code(s): S83.412A - Sprain of medial collateral ligament of left knee, initial encounter Category: Medical (3) Dislocation of patella, left, closed: Code(s): S83.005A - Unspecified dislocation of left patella, initial encounter Category: Medical Plan Mr. Mujica is a 19-year-old male who presents to the office today for follow up of left knee pain status post patellar dislocation that occurred on 01/02/2025. He states that he was walking down stairs when he felt his patella dislocate and then reduce on its own. Patient had an MRI that was performed on 02/10/2025 of the left knee. He reports to the office today with complaints of medial and lateral sided joint pain. Medial-sided knee pain is more severe at this time. The lateral pain occurs occasionally. Of note, the patient did have a prior meniscal injury in which he had an arthroscopy for a few years ago but is unsure if this was a repair or partial meniscectomy. He reports this was done in [place]. While in the office today, I discussed the MRI findings that were significant for left knee anterior horn and posterior horn of the lateral meniscus with possible root tear, as well as an MCL sprain and an MPFL sprain and subchondral edema on the lateral aspect of the femoral condyle and medial aspect of the patella. When discussing the patient's symptoms today he reports that the medial aspect of the knee is more concerning at this time and he feels medial sided instability. He does have some lateral joint pain but is very intermittent and is not present on today's visit. I have recommended a trial of physical therapy to see if we can manage these symptoms. I will see the patient in 8 weeks after physical therapy, sooner if needed. Should his symptoms jarad nue to present we may discuss surgical intervention at that time. Orders: Orders PT Evaluation and Treatment Today S83.005A - Unspecified dislocation of left patella, initial encounter, S83.207A - Unspecified tear of unspecified meniscus, current injury, left knee, initial encounter, S83.412A - Sprain of medial collateral ligament of left knee, initial encounter Coding Level of Care Code Est Pt Level 3 (53568) Diagnoses Acute meniscal tear of left knee S83.207A MCL sprain of left knee S83.412A Dislocation of patella, left, closed S83.005A
== END 2025-02-18 13:54 | disposition home or self-care (01) ==
LOC: HO.HOS 12:49
PROVIDERS: Visit Provider Physician Assistant
DX: S83.412A Sprain of medial collateral ligament of left knee, initial encounter (principal); S83.282A Other tear of lateral meniscus, current injury, left knee, initial encounter; S83.015A Lateral dislocation of left patella, initial encounter
CPT/HCPCS: 99213

== ENCOUNTER → 2025-02-18 12:48 | Outpatient (BNVA) | payer OTHER, SELFPAY | PROVIDERS: Visit Provider Physician Assistant | DX: Z71.2 Person consulting for explanation of examination or test findings (principal); M25.562 Pain in left knee; S83.207A Unspecified tear of unspecified meniscus, current injury, left knee, initial encounter; S83.412A Sprain of medial collateral ligament of left knee, initial encounter; S83.005A Unspecified dislocation of left patella, initial encounter | CPT/HCPCS: 99212 ==